=== PATIENT | male | born 1980 | race Caucasian/White ===

== ENCOUNTER 2019-05-10 10:48 | Emergency (ER) | payer BC, SELFPAY ==
[2019-05-10 10:50] VITALS: BP 125/91; PULSE 121; RESP 20; TEMP 36.9; O2SAT 95; BMI 27.6
--- NOTE | 2019-05-10 11:11 | ECG_ITS ---
Measurements Intervals [place] Rate: 109 P: 21 ME: 181 QRS: 5 QRSD: 87 T: 11 QT: 318 QTc: 430 SINUS TACHYCARDIA No previous ECG available for comparison Electronically Signed On 05-10-2019 13:47:09 FACILITIES TECHNICIAN by Heidy Dixon M.D. [id number]
[2019-05-10 11:29] LABS: Basophils % 0.2 %; Eosinophils % 0.2 %; Hematocrit 51.9 % (42.0-52.0); Hemoglobin 17.8 g/dL (11.7-16.6); Lymphocytes # 0.6 10^3/uL (0.8-4.8); Lymphocytes % 4.1 %; Mean Corpuscular HGB Conc 34.3 g/dL (30.0-36.0); Mean Corpuscular Hemoglobin 32.6 pg (28.0-34.0); Mean Corpuscular Volume 95.1 fL (80-94); Mean Platelet Volume 11.6 fL (7.4-10.4); Monocytes # 0.5 10^3/uL (0.2-0.9); Monocytes % 3.9 %; Neutrophils # 12.6 10^3/uL (1.8-7.7); Neutrophils % 91.2 %; Nucleated Red Blood Cells % 0 %; Platelet Count 188 10^3/cmm (130-400); Red Blood Count 5.46 10^6/uL (4.1-5.3); White Blood Count 13.8 10^3/uL (4.0-10.0)
[2019-05-10 11:44] LABS: Alanine Aminotransferase 59 U/L (0-41); Albumin Level 4.6 g/dL (3.5-5.2); Alkaline Phosphatase 91 IU/L (40-130); Anion Gap 15.1 (5-19); Aspartate Amino Transferase 28 U/L (0-40); Blood Urea Nitrogen 18 mg/dL (6-20); Calcium 9.2 mg/Dl (8.6-10.0); Carbon Dioxide 22 mmol/L (22-29); Chloride 103 mmol/L (98-107); Globulin 3.1 g/dL (1.3-4.6); Glomerular Filtration Rate 107.1 mL/min (90-130); Glucose 114 mg/dL (74-109); Lipase 14 U/L (13-60); Magnesium 2.1 mg/dL (1.7-2.3); Potassium 4.1 mmol/L (3.5-5.1); Sodium 136 mmol/L (136-145); Total Bilirubin 0.5 mg/dL (0.15-1.2); Total Protein 7.7 g/dL (6.6-8.7)
[2019-05-10 11:46] LABS: Troponin(5th) Baseline 6 ng/mL (0-15)
[2019-05-10 11:50] LABS: Lactate (Lactic Acid level) 1.4 mmol/L (0.5-2.2)
[2019-05-10 11:57] LABS: Add Urine Microscopic? NO
[2019-05-10 11:58] LABS: Urine Appearance Clear (CLEAR); Urine Color Yellow (Yellow); pH Urine 5 (5-7)
[2019-05-10 11:59] LABS: Bilirubin Urine 1+ (NEGATIVE); Blood Urine Neg (Negative); Glucose Urine UA Norm (Normal); Ketones Urine Negative (Negative); Leukocyte Esterase Urine Negative (Negative); Nitrate Urine Negative (Negative); Protein Urine Neg (Negative); Urobilinogen Urine Norm (Negative)
--- NOTE | 2019-05-10 11:59 | W.ED.ABDPA2 ---
HPI - Abdominal Pain General: Chief Complaint: Abdominal Pain Stated Complaint: abdominal pain, vomiting Time Seen by Provider: 05/10/19 11:03 Source: patient and family History of Present Illness: HPI narrative: Kolby Saucedo is a nice 38-year-old male who comes in complaining of constant abdominal pain for the past 7 days. The pain will wax and wane in intensity but never goes away completely. He has had several episodes of nausea and vomiting but his emesis has been nonbloody. He denies any diarrhea or constipation. He has had a subjective fever but when he measures his temperature he is never truly febrile. He describes the pain as cramping and burning in nature and diffuse in location. He is unaware of any exacerbating or alleviating factors and he is unaware of any eliciting factors. He denies having any thing similar in the past. He denies any known ill contacts. MD elicited complaint: abdominal pain Pertinent past history: none Onset (ago): day(s) Location: Diffuse Severity: moderate Quality: cramping and burning Radiation: none Migration to: no migration Exacerbating factors: nothing Relieving factors: nothing Associated Symptoms: Reports GI cramping and vomiting; Denies chills, coffee ground emesis, constipation, diarrhea, dysuria, fever(s), hematochezia, hematuria, hematemesis, melena, nausea and syncope Review of Systems General: Reports: other (negative unless marked) Const: Denies: fever, chills, body aches, fatigue, malaise or diaphoresis Eyes: Denies: change in vision or blurry vision ENMT: Denies: throat pain, painful swallowing, hoarseness, ear pain, ear discharge, Change in hearing or nasal discharge Card: Denies: chest pain, palpitations, irregular heart rhythm, syncope, pre-syncope, shortness of breath on exertion or shortness of breath when lying down Resp: Denies: shortness of breath, productive cough, non-productive cough, wheezing, coughing up blood or chest congestion GI: Reports: abdominal pain, vomiting and cramping; Denies: nausea, vomiting blood, coffee grounds in vomit, diarrhea, constipation, blood in stool or black tarry stool : Denies: flank pain, difficulty urinating, painful urination, urinary frequency, urinary urgency, decreased urine ouput, urinary incontinence or blood in urine Musc: Denies: neck pain, back pain, extremity pain, extremity swelling, joint pain, joint swelling, joint warmth or joint stiffness Skin/Breast: Denies: rash, skin tenderness or yellow skin Neuro: Denies: headache, numbness in extremities, weakness in extremities, changes in sensation, lack of coordination, difficulty walking, dizziness, vertigo or confusion Endo: Denies: excessive thirst, tired all the time, cold intolerance, excessive sweating, flushing or hot flashes Reij/Lymph: Denies: easy bruising, easy bleeding, petechiae or enlarged lymph nodes All/Imm: Denies: hives, throat swelling, tongue swelling, facial swelling or acute wheezing PFSH ED PFSH: Statuses (acute, chronic, etc) shown below reflect problem list status as previously entered and may not be historically accurate Surgical History (Updated 05/10/19 @ 12:05 by Anisha Selby) History of cholecystectomy (Acute) Social History Smoking and tobacco status: never smoked Physical Exam Const: COMMON NORMALS: no apparent distress, oriented x3, no limitations, healthy appearing and well nourished EXAM LIMITATIONS: no altered mental status GENERAL APPEARANCE: cooperative, well kempt and well developed ORIENTATION/CONSCIOUSNESS: Yes awake HENMT: COMMON NORMALS: normocephalic, head/scalp atraumatic, hearing grossly normal bilaterally, external ears normal, EAC's normal, external nose normal and moist oral mucous membranes HEAD & SCALP: normal to inspection, normocephalic and atraumatic FACE & SINUS: normal facial exam and face symmetric NOSE: external nose normal and nares normal EXTERNAL EAR: Yes external ears normal EXTERNAL AUDITORY CANAL: EAC's normal MOUTH: oral and palatal mucosa normal and tongue normal Eye: COMMON NORMALS: PERRL, EOMs intact bilaterally, conjunctivae normal and no scleral icterus GENERAL EYE: normal appearance of both eyes and normal light reflex CONJUNCTIVA: Yes conjunctivae normal SCLERA: sclerae normal CORNEA: Yes corneas normal PUPIL: Yes PERRL DIRECT OPHTHALMOSCOPY: Yes normal light reflex Neck/C-Spine: COMMON NORMALS: full ROM, no lymphadenopathy, supple, no meningeal signs and no JVD GENERAL: Yes normal visual inspection and Yes trachea midline CERVICAL SPINE: Yes cervical ROM normal Chest: COMMONS NORMALS: inspection of chest normal and palpation of chest normal Resp: COMMON NORMALS: normal respiratory effort, no retractions, no use of accessory muscles and clear to auscultation bilaterally EFFORT & INSPECTION: Yes able to speak in complete sentences AUSCULTATION: clear to auscultation bilaterally Cardio: COMMON NORMALS: no JVD, regular rate, regular rhythm, S1 normal heart sound, S2 normal heart sound, no gallops, no clicks, no murmurs and no rub JUGULAR VENOUS DISTENTION: no JVD RATE: regular rate RHYTHM: regular rhythm HEART SOUNDS: S1 normal and S2 normal GI: COMMON NORMALS: no hepatosplenomegaly PALPATION: Yes tender Details: LLQ, RLQ, LUQ and RUQ, Yes no hepatosplenomegaly, No pulsatile mass, No ascites present and No abdominal wall crepitus : COMMON NORMALS: Yes no CVA tenderness BLADDER/KIDNEY EXAM: Yes no CVA tenderness Back/Pelvis: COMMON NORMALS: no CVA tenderness, thoracic and lumbar spine normal to inspection, no thoracic nor lumbar tenderness and thoraco-lumbar ROM normal Extremity: COMMON NORMALS: normal to inspection, full ROM, normal capillary refill, no joint enlargement, no clubbing, cyanosis or edema and no calf tenderness Neuro: COMMON NORMALS: oriented x3, CN's II-XII intact bilaterally, moves all extremities, no focal motor deficits and no sensory deficits noted MENINGEAL SIGNS: Yes no meningeal signs Psych: COMMON NORMALS: mental status grossly normal, thought process normal, cooperative, affect normal, speech normal and activity/motor behavior normal APPEARANCE: Yes well kempt SPEECH: Yes normal speech THOUGHT PROCESS: normal thought process Skin: COMMON NORMALS: no rashes or lesions noted, skin turgor normal, no jaundice, no petechiae and no mottling GENERAL SKIN EXAM: no rashes or lesions noted and turgor normal Course Vital Signs: Vital signs: Vital Signs Temperature 98.4 F 05/10/19 10:50 Pulse Rate 100 05/10/19 14:07 Respiratory Rate 18 05/10/19 13:37 Blood Pressure 105/61 05/10/19 14:07 Pulse Oximetry 96 05/10/19 14:07 MDM - Abdominal Pain MDM Narrative: Medical decision making narrative: Alo Yañez is a 38-year-old male who comes in complaining of abdominal pain that is been constant since Tuesday. He said several episodes of nausea and vomiting. The pain is described as cramping and burning. He has had no fever or chills. The patient has had 2- EKGs here. His pain is much better. He has had similar symptoms in the past upon further history. His exam does not show any type of peritonitis. He does have an elevated white count but no specific findings to suggest pneumonia, diverticulitis, acute coronary syndrome or otherwise. There are multiple etiologies in the long differential which all of been considered. At this time I believe I will treat him clinically for diverticulitis with Cipro and Flagyl and Zofran. He agrees to return in the next day if he is still having symptoms or sooner if his symptoms become worse. Clinically on reexamination he is feeling much better. He denies any other symptoms or complaints. We will discharge him home but he understands to return for the reasons we discussed. Lab Data: Attestation: I reviewed the patient's lab results. Labs: Lab Results 05/10/19 05/10/19 05/10/19 Range/Units 11:19 11:19 11:19 WBC 13.8 H (4.0-10.0) 10^3/ uL RBC 5.46 H (4.1-5.3) 10^6/u L Hgb 17.8 H (11.7-16.6) g/dL Hct 51.9 (42.0-52.0) % MCV 95.1 H (80-94) fL MCH 32.6 (28.0-34.0) pg MCHC 34.3 (30.0-36.0) g/dL RDW 12.0 L (12.1-15.1) % Plt Count 188 (130-400) 10^3/c mm MPV 11.6 H (7.4-10.4) fL Neut % (Auto) 91.2 % Lymph % (Auto) 4.1 % [place] % (Auto) 3.9 % Eos % (Auto) 0.2 % Baso % (Auto) 0.2 % Neut # (Auto) 12.6 H (1.8-7.7) 10^3/u L Lymph # (Auto) 0.6 L (0.8-4.8) 10^3/u L [place] # (Auto) 0.5 (0.2-0.9) 10^3/u L Eos # (Auto) 0.0 (0.0-0.8) 10^3/u L Baso # (Auto) 0.0 (0.0-0.1) 10^3/u L Nucleated RBC % (a uto) 0 % Nucleated RBCs # 0.0 /100WBC Sodium 136 (136-145) mmol/L Potassium 4.1 (3.5-5.1) mmol/L Chloride 103 (98-107) mmol/L Carbon Dioxide 22 (22-29) mmol/L Anion Gap 15.1 (5-19) BUN 18 (6-20) mg/dL Creatinine 0.8 (0.7-1.2) mg/dL GFR Calculation 107.1 (90-130) mL/min Glucose 114 H (74-109) mg/dL Lactate 1.4 (0.5-2.2) mmol/L Calcium 9.2 (8.6-10.0) mg/Dl Magnesium 2.1 (1.7-2.3) mg/dL Total Bilirubin 0.5 (0.15-1.2) mg/dL AST 28 (0-40) U/L ALT 59 H (0-41) U/L Alkaline Phosphata se 91 (40-130) IU/L Troponin T Baselin e (0-15) ng/mL Troponin T 120 Min [place] (0-15) ng/mL Total Protein 7.7 (6.6-8.7) g/dL Albumin 4.6 (3.5-5.2) g/dL Globulin 3.1 (1.3-4.6) g/dL Lipase 14 (13-60) U/L Urine Color (Yellow) Urine Appearance (CLEAR) Urine pH (5-7) Ur Specific Gravit y (1.005-1.030) Urine Protein (Negative) Urine Glucose (UA) (Normal) Urine Ketones (Negative) Urine Occult Blood (Negative) Urine Nitrate (Negative) Urine Bilirubin (NEGATIVE) Urine Urobilinogen (Negative) mg/dL Ur Leukocyte Cheri ase (Negative) 05/10/19 05/10/19 05/10/19 Range/Units 11:19 11:30 13:27 WBC (4.0-10.0) 10^3/ uL RBC (4.1-5.3) 10^6/u L Hgb (11.7-16.6) g/dL Hct (42.0-52.0) % MCV (80-94) fL MCH (28.0-34.0) pg MCHC (30.0-36.0) g/dL RDW (12.1-15.1) % Plt Count (130-400) 10^3/c mm MPV (7.4-10.4) fL Neut % (Auto) % Lymph % (Auto) % [place] % (Auto) % Eos % (Auto) % Baso % (Auto) % Neut # (Auto) (1.8-7.7) 10^3/u L Lymph # (Auto) (0.8-4.8) 10^3/u L [place] # (Auto) (0.2-0.9) 10^3/u L Eos # (Auto) (0.0-0.8) 10^3/u L Baso # (Auto) (0.0-0.1) 10^3/u L Nucleated RBC % (a uto) % Nucleated RBCs # /100WBC Sodium (136-145) mmol/L Potassium (3.5-5.1) mmol/L Chloride (98-107) mmol/L Carbon Dioxide (22-29) mmol/L Anion Gap (5-19) BUN (6-20) mg/dL Creatinine (0.7-1.2) mg/dL GFR Calculation (90-130) mL/min Glucose (74-109) mg/dL Lactate (0.5-2.2) mmol/L Calcium (8.6-10.0) mg/Dl Magnesium (1.7-2.3) mg/dL Total Bilirubin (0.15-1.2) mg/dL AST (0-40) U/L ALT (0-41) U/L Alkaline Phosphata se (40-130) IU/L Troponin T Baselin e 6 (0-15) ng/mL Troponin T 120 Min [place] 6.00 (0-15) ng/mL Total Protein (6.6-8.7) g/dL Albumin (3.5-5.2) g/dL Globulin (1.3-4.6) g/dL Lipase (13-60) U/L Urine Color Yellow (Yellow) Urine Appearance Clear (CLEAR) Urine pH 5 (5-7) Ur Specific Gravit y 1.020 (1.005-1.030) Urine Protein Neg (Negative) Urine Glucose (UA) Norm (Normal) Urine Ketones Negative (Negative) Urine Occult Blood Neg (Negative) Urine Nitrate Negative (Negative) Urine Bilirubin 1+ H (NEGATIVE) Urine Urobilinogen Norm (Negative) mg/dL Ur Leukocyte Cheri ase Negative (Negative) Imaging Data ^: CT Abd/Pel: Radiologist's impression: [facility] [address] [place] [address] CT Scan Report Signed Patient: Kolby Nava MR#: [id number] : 1980 Acct:[id number] Age/Sex: 38 / M ADM Date: 05/10/19 Loc: ER Attending Dr: Ordering Physician: Anisha Selby DO Date of Service: 05/10/19 Procedure(s): CT abdomen pelvis w con* [id number] Accession Number(s): [id number] Report Number: [id number] WS: [id number] CT scan of the abdomen and pelvis without Oral and with IV contrast. Additional two-dimensional coronal and sagittal reconstruction was performed. 05/10/2019 Clinical Data: Abdominal Pain Comparison: None. DLP: 1027.[address] scans at [facility] use at least one of these dose optimization techniques: automated exposure control; mA and/or kV adjustment per patient size (includes targeted exams where dose is matched to clinical indication); or iterative reconstruction. Findings: The lower lungs show no nodules, masses or effusions.1 there is a small hiatal hernia. The liver, spleen, adrenal glands and pancreas are normal. There are clips in the gallbladder fossa from a cholecystectomy. The kidneys show equal bilateral contrast excretion with no cyst, hydronephrosis, renal calculi or masses.. The abdominal aorta is normal in size. No appendicitis or diverticulitis is seen. The stomach, small bowel and colon are normal. No abscess, adenopathy, ascites, mass, obstruction or free air is seen. The bladder is unremarkable. No inguinal hernia is seen. The bones of the lower thorax, lumbar spine, pelvis, and hips are normal. Negative for acute intra-abdominal or pelvic abnormalities. CT/CT abdomen pelvis w con* [id number] Impression: Dictated By: Bobbi Sorenson MD Signed By: Bobbi Sorenson MD Signed Date/Time:05/10/19 1409 DD/ 1405 EKG Data ^: EKG 1: Attestation: I personally reviewed and interpreted this EKG as follows: (EKG performed and read at 1132 -sinus tachycardia at 110 beats a minute, normal intervals, no blocks, normal axis, artifact present, nonspecific ST and T wave changes.) Discharge Plan Discharge Patient Disposition: Home, Self-Care Clinical Impression: Diverticulitis Abdominal pain Qualifiers: Abdominal location: left upper quadrant Qualified Code(s): R10.12 - Left upper quadrant pain Condition: Stable Prescriptions: New ciprofloxacin HCl [Cipro] 500 mg tablet 500 mg PO BID Qty: 20 RF: 0 dicyclomine 20 mg tablet 20 mg PO QID PRN (Reason: Abdominal Discomfort) 10 Days Qty: 40 RF: 0 metronidazole [Flagyl] 500 mg tablet 500 mg PO TID 10 Days Qty: 30 RF: 0 ondansetron HCl [Zofran] 4 mg tablet 4 mg PO DAILY PRN (Reason: nausea and vomiting) 5 Days Qty: 20 RF: 0 No Action No Known Home Medications RF: 0 Discharge Orders: Discharge Order (Routine); Ordered 05/10/19 Ordered By: Anisha Selby Referrals: Nico Dodd MD [Family Provider] - Discharge Diet: Follow a clear liquid diet and advance it as tolerated. Discharge Activity: Increase activity as tolerated Patient Instructions: Cholecystitis (ED), Abdominal Pain (ED) Activity Restrictions/Additional Instructions: Please return to the ER immediately for any of the signs or symptoms listed on your discharge instruction sheets, worsening/changing of your symptoms, you are not getting better as quickly as expected, or for ANY other cause or concerns. Return to the ER sooner for increased pain, vomiting, fever, chest pain, shortness of breath, or for any other cause for concern. Stand Alone Forms: Work/School Release Coding Level of Care Code ED Electric Engine Mechanic for Chg Fwd Exam Problem Focused
[2019-05-10 12:08] VITALS: RESP 18; O2SAT 93
[2019-05-10] MEDS: morphine 4 mg/mL SDV 1 mL IVP ×2 (12:08→14:44)
[2019-05-10] MEDS: ondansetron 2 mg/ML SDV 2 mL 4 MG IVP (12:15)
[2019-05-10] MEDS: sodium chloride 0.9% 1,000 ML 999 ML IV (12:20)
--- NOTE | 2019-05-10 12:56 | CT_ITS ---
WS: [id number] CT scan of the abdomen and pelvis without Oral and with IV contrast. Additional two-dimensional [place] nal and sagittal reconstruction was performed. 05/10/2019 Clinical Data: Abdominal Pain Comparison: None. DLP: 1027.[address] scans at [facility] use at least one of these dose optimization techniques: automat ed exposure control; mA and/or kV adjustment per patient size (includes targeted exams where dose is matched to clinical indication); or iterative reconstruction. Findings: The lower lungs show no nodules, masses or effusions.1 there is a small hiatal hernia. The liver, spleen, adrenal glands and pancreas are normal. There are clips in the gallbladder fossa f rom a cholecystectomy. The kidneys show equal bilateral contrast excretion with no cyst, hydronephrosis, renal calculi or ma sses.. The abdominal aorta is normal in size. No appendicitis or diverticulitis is seen. The stomach, small bowel and colon are normal. No abscess, adenopathy, ascites, mass, obstruction or free air is seen. The bladder is unremarkable. No inguinal hernia is seen. The bones of the lower thorax, lumbar spine, pelvis, and hips are normal. Negative for acute intra-abdominal or pelvic abnormalities. CT/CT abdomen pelvis w con* [id number] Impression:
--- NOTE | 2019-05-10 13:11 | ECG_ITS ---
Measurements Intervals [place] Rate: 110 P: 18 WI: 181 QRS: 1 QRSD: 89 T: 31 QT: 318 QTc: 432 SINUS TACHYCARDIA No previous ECG available for comparison Electronically Signed On 05-10-2019 13:58:05 LOGISTICS SPECIALIST by Heidy Dixon M.D. [id number]
[2019-05-10 13:37] VITALS: RESP 18; O2SAT 96
[2019-05-10] MEDS: HYDROmorphone 1 mg/mL INJ 1 mL IVP (13:37)
[2019-05-10] MEDS: iohexol 300 mg/mL 100 mL Btl IV (13:52)
[2019-05-10 14:07] VITALS: BP 105/61; PULSE 100; O2SAT 96
[2019-05-10] MEDS: ciprofloxacin 500 mg Tablet PO (14:43)
[2019-05-10 14:44] VITALS: RESP 18; O2SAT 96
[2019-05-10] MEDS: metroNIDAZOLE 500 MG Tablet PO (14:45)
[2019-05-10 14:48] LABS: Troponin 5 2HR Delta 0 ABS# (0-10)
[2019-05-10 15:05] VITALS: BP 124/73; PULSE 98; RESP 18; O2SAT 96
== END 2019-05-10 15:07 | disposition home or self-care (01) ==
PROVIDERS: Emergency Provider Emergency Medicine; Family Provider Family Medicine
DX: K57.92 Diverticulitis of intestine, part unspecified, without perforation or abscess without bleeding (principal)
CPT/HCPCS: 36415; 74177; 80053; 81003; 83605; 83690; 83735; 84484; 85025; 93005; 96360; 96374; 96375; 99283; J1170; J2270; J2405; J7030; Q9967

== ENCOUNTER 2021-05-07 09:59 | Outpatient (CLI) | payer BC, SELFPAY ==
[2021-05-07 10:19] VITALS: BP 159/107; PULSE 106; RESP 17; TEMP 36.7; O2SAT 95; BMI 27.7
[2021-05-07 10:38] VITALS: BP 152/97; PULSE 101; RESP 17; TEMP 36.8; O2SAT 95
[2021-05-07 11:38] VITALS: BP 169/109; PULSE 110; RESP 18; TEMP 36.7; O2SAT 93
== END 2021-05-07 10:00 | disposition home or self-care (01) ==
LOC: OPS 10:05
PROVIDERS: Visit Provider Nurse Practitioner
DX: U07.1 COVID-19 (principal)
CPT/HCPCS: 96365

== ENCOUNTER 2023-12-10 06:38 | Emergency (ER) | payer BC, SELFPAY ==
[2023-12-10 06:49] VITALS: BP 151/104; PULSE 103; RESP 18; TEMP 36.4; O2SAT 93
[2023-12-10] MEDS: tetanus-dipt-pertussis 0.5 mL SDV IM (07:12)
[2023-12-10] MEDS: lidocaine-epi 1% 20 mL INJ INJECTION (07:34)
[2023-12-10] MEDS: bacitracin ointment Pkt 1 EACH TOPICAL (08:02)
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
== END 2023-12-10 08:25 | disposition home or self-care (01) ==
PROVIDERS: Emergency Provider Family Medicine
DX: S51.812A Laceration without foreign body of left forearm, initial encounter (principal); S81.011A Laceration without foreign body, right knee, initial encounter; W18.02XA Striking against glass with subsequent fall, initial encounter; Z23 Encounter for immunization
CPT/HCPCS: 12005; 90471; 90715; 99283